=== PATIENT | female | born 1965 | race Caucasian/White ===

== ENCOUNTER 2017-06-23 15:04 | Outpatient (CLI) | payer BC ==
--- NOTE | 2017-06-24 12:29 | Mammography Report ---
DIGITAL SCREENING MAMMOGRAM: 06/23/2017 CLINICAL INDICATION: A 51-year-old with personal history of right breast cancer status post mastecto my and chemotherapy, history of benign left breast biopsy for screening. COMPARISON: 05/2016, 09/2015, 07/2015, 10/2007 TECHNIQUE: Left CC and MLO projections were obtained. FINDINGS: The left breast again demonstrates scattered fibroglandular densities. Subareolar biopsy marker is stable. A few punctate, typically benign calcifications are present. No suspicious masses , clustered microcalcifications, or regions of architectural distortion are identified. IMPRESSION: BENIGN FINDINGS. RECOMMENDATION: Routine annual screening unless otherwise clinically indicated. BIRADS CATEGORY 2 - BENIGN FINDINGS. STANDARD QUALIFYING STATEMENTS 1. This examination was reviewed with the aid of Computer-Aided Detection (CAD). 2. A negative or benign imaging report should not delay biopsy if clinically suspicious findings are present. Consider surgical consultation if warranted. More than 5% of cancers are not identified by i maging. 3. Dense breasts may obscure an underlying neoplasm. JOB #: [id number] EXT JOB #:[id number]
== END 2017-06-23 15:05 | disposition home or self-care (01) ==
LOC: DI 15:04
PROVIDERS: ATTEND Internal Medicine Hematology & Oncology
DX: Z12.31 Encounter for screening mammogram for malignant neoplasm of breast (principal); Z08 Encounter for follow-up examination after completed treatment for malignant neoplasm; Z85.3 Personal history of malignant neoplasm of breast

== ENCOUNTER 2017-11-25 13:00 | Emergency (ER) | payer BC, OTHER ==
--- NOTE | 2017-11-25 15:37 | ED Physician Documentation ---
PD HPI LOWER EXT INJURY - Stated complaint Stated Complaint: R LEG PX/BRUISE/NUMB - Chief complaint Chief Complaint: Ext Problem - History obtained from History obtained from: Patient PD PAST MEDICAL HISTORY - Past Medical History Cardiovascular: None Respiratory: None Neuro: None Endocrine/Autoimmune: None GI: None REGULAR SENIOR CARE PROVIDER: Breast cancer : None HEENT: None Psych: Depression, Anxiety, Panic attacks Musculoskeletal: None Derm: Eczema - Past Surgical History Past Surgical History: Yes /REGULAR SENIOR CARE PROVIDER: Mastectomy - Present Medications Home Medications: Ambulatory Orders Medication Instructions Recorded Confirmed Ascorbic Acid [Vitamin C] 1,000 mg PO QID 09/15/15 05/30/17 Cholecalciferol (Vitamin D3) 2,000 unit PO DAILY 09/15/15 05/30/17 [Vitamin D-3] Cyanocobalamin (Vitamin B-12) 1 tab PO DAILY 09/15/15 05/30/17 [Vitamin B12] Milk Thistle 150 mg PO TID 09/15/15 05/30/17 [place]-3/Dha/Epa/Fish Oil [Fish Oil 1 each PO DAILY 09/15/15 05/30/17 1,400 mg Softgel] Turmeric [Curcumin] 250 gm MC DAILY 09/15/15 05/30/17 Vitamin E 1 cap PO DAILY 01/05/16 05/30/17 Aspirin [Aspir-Low] 81 mg ORAL DAILY 03/16/16 05/30/17 Tamoxifen Citrate 20 mg ORAL DAILY 03/16/16 05/30/17 - Allergies Allergies/Adverse Reactions: Allergies Allergy/AdvReac Type Severity Reaction Status Date / Time codeine Allergy Emesis Verified 11/25/17 13:11 - Social History Does the pt smoke?: Yes Smoking Status: Current every day smoker Results - Vitals Vitals: Vital Signs - 24 hr 11/25/17 13:07 Temperature 36.6 C Heart Rate 73 Respiratory 20 Rate Blood Pressure 150/60 H O2 Saturation 100 Oxygen O2 Source Room air
[2017-11-25] MEDS ORDERED: IBUPROFEN 800 MG TABLET PO STA (18:20)
[2017-11-25 18:32] VITALS: BP 135/77
--- NOTE | 2017-11-25 18:35 | ED Physician Documentation ---
PD HPI LOWER EXT INJURY - Stated complaint Stated Complaint: R LEG PX/BRUISE/NUMB - Chief complaint Chief Complaint: MHE - History obtained from History obtained from: Patient - History of Present Illness PD HPI LOW EXT INJURY LOCATION: Right, Calf Type of injury: Other (No injury.) Timing - duration: Days (3) Worsened by: Moving, Palpating Associated symptoms: Discolored Similar symptoms before: Has not had sx before - Additional information Additional information: The patient is a 51-year-old female who presents with bruising and pain in her right calf. She first noticed it 3 days ago. She denies any traumatic injury. She works, standing on concrete floor for many hours per day. She denies fever, cough, chest pain, or shortness of breath. She denies history of similar symptoms in the past. Past medical history is significant for breast cancer that was diagnosed 4 years ago. She is status post right mastectomy, and has been taking tamoxifen for the past 2 years. She does smoke cigarettes. She has not had any recent long distance travel. Review of Systems Constitutional: denies: Fever Nose: denies: Congestion Throat: denies: Sore throat Cardiac: denies: Chest pain / pressure Respiratory: denies: Dyspnea, Cough GI: denies: Abdominal Pain, Nausea, Vomiting : denies: Dysuria Skin: denies: Rash Musculoskeletal: reports: Extremity pain (Right calf.) Neurologic: denies: Focal weakness, Numbness, Headache PD PAST MEDICAL HISTORY - Past Medical History Past Medical History: No Cardiovascular: None Respiratory: None Neuro: None Endocrine/Autoimmune: None GI: Diverticulitis BODY TRIMMER: Breast cancer : None HEENT: None Psych: Depression, Anxiety, Panic attacks Musculoskeletal: None Derm: Eczema - Past Surgical History Past Surgical History: Yes /BODY TRIMMER: Mastectomy - Present Medications Home Medications: Ambulatory Orders Medication Instructions Recorded Confirmed Ascorbic Acid [Vitamin C] 1,000 mg PO QID 09/15/15 05/30/17 Cholecalciferol (Vitamin D3) 2,000 unit PO DAILY 09/15/15 05/30/17 [Vitamin D-3] Cyanocobalamin (Vitamin B-12) 1 tab PO DAILY 09/15/15 05/30/17 [Vitamin B12] Milk Thistle 150 mg PO TID 09/15/15 05/30/17 [place]-3/Dha/Epa/Fish Oil [Fish Oil 1 each PO DAILY 09/15/15 05/30/17 1,400 mg Softgel] Turmeric [Curcumin] 250 gm MC DAILY 09/15/15 05/30/17 Vitamin E 1 cap PO DAILY 01/05/16 05/30/17 Aspirin [Aspir-Low] 81 mg ORAL DAILY 03/16/16 05/30/17 Tamoxifen Citrate 20 mg ORAL DAILY 03/16/16 05/30/17 - Allergies Allergies/Adverse Reactions: Allergies Allergy/AdvReac Type Severity Reaction Status Date / Time codeine Allergy Emesis Verified 11/25/17 13:11 - Social History Does the pt smoke?: Yes Smoking Status: Current every day smoker Does the pt drink ETOH?: Yes Does the pt have substance abuse?: No - Immunizations Immunizations are current?: Yes - POLST Patient has POLST: No PD ED PE NORMAL - Vitals Vital signs reviewed: Yes (Systolic hypertension initially.) - General General: Alert and oriented X 3, Well developed/nourished - HEENT HEENT: Atraumatic - Neck Neck: No adenopathy, No JVD - Cardiac Cardiac: RRR, No murmur - Respiratory Respiratory: No respiratory distress, Clear bilaterally - Abdomen Abdomen: Soft, Non tender - Back Back: No CVA TTP - Derm Derm: No rash - Extremities Extremities: No edema, Other (There is ecchymosis at the mid calf, with associated tenderness to palpation. There is no swelling of the right leg compared to the left. Distal neurovascular is intact.) - Neuro Neuro: Alert and oriented X 3, No motor deficit, No sensory deficit Results - Vitals Vitals: Vital Signs - 24 hr 11/25/17 11/25/17 11/25/17 13:07 15:55 17:54 Temperature 36.6 C 37.2 C Heart Rate 73 74 93 Respiratory 20 14 16 Rate Blood Pressure 150/60 H 150/88 H 113/70 O2 Saturation 100 100 97 11/25/17 18:31 Temperature Heart Rate 59 L Respiratory 14 Rate Blood Pressure 135/77 H O2 Saturation 98 Oxygen O2 Source Room air - Rads (name of study) Venous Doppler right leg Radiology: Prelim report reviewed, EMP read contemporaneously, See rad report ( No evidence for DVT.) PD MEDICAL DECISION MAKING - ED course Complexity details: reviewed results, re-evaluated patient, considered differential, d/w patient ED course: The patient's presentation is significant for bruising of the right calf, without evidence of DVT by venous Doppler ultrasound. Treatment in the emergency department included administration of ibuprofen 800 mg orally. I discussed with her the results of the ultrasound, symptomatic treatment and outpatient follow-up, as well as potentially worrisome signs or symptoms that should prompt reevaluation in the emergency department. Departure - Departure Disposition: 01 Home, Self Care Clinical Impression: Hematoma of right lower extremity Qualifiers: Encounter type: initial encounter Qualified Code(s): S80.11XA - Contusion of right lower leg, initial encounter Condition: Stable Instructions: ED Hematoma Follow-Up: Aurea Ybarra PA [Primary Care Provider] - Comments: Keep your right leg elevated as much of the time as possible. You can use Tylenol or ibuprofen if needed for discomfort. Avoid aspirin until the bruising has completely resolved. Follow up with your primary physician within 1-2 weeks. Call to schedule appointment. Return to the emergency department if you develop increasing pain or swelling of your leg, or otherwise worsening symptoms. Discharge Date/Time: 11/25/17 18:48
--- NOTE | 2017-11-25 18:37 | Ultrasound Report ---
EXAM: RIGHT LOWER EXTREMITY VENOUS ULTRASOUND EXAM DATE: 11/25/2017 05:52 PM. CLINICAL HISTORY: Right calf pain and ecchymosis. COMPARISON: None. TECHNIQUE: Real-time sonographic vascular imaging was performed by the aircraft refueller through the lower extremity utilizing both color-flow and Doppler spectral analysis. Multiple auto claim representative static maureen ges were saved for review. FINDINGS: Common Femoral Vein (CFV): Normal. CFV-GSV Junction: Normal. Profunda Femoral Vein (PFV): Normal. Femoral Vein (FV) Prox: Normal. Femoral Vein (FV) Mid: Normal. Femoral Vein (FV) Dist: Normal. Popliteal Vein: Normal. Posterior Tibial Veins: Normal. Peroneal Veins: Normal. Other: None. IMPRESSION: No evidence for deep venous thrombosis. [facility] Referring Provider Line: [phone] SITE ID: [id number]
--- NOTE | 2017-11-25 18:37 | Ultrasound Preliminary Report ---
Exam: US DUPLEX EXT VEINS RIGHT IMPRESSION: No evidence for deep venous thrombosis. [facility] SITE ID: [id number]
== END 2017-11-25 18:48 | disposition home or self-care (01) ==
LOC: ED 13:00
DX: S80.11XA Contusion of right lower leg, initial encounter (principal); X58.XXXA Exposure to other specified factors, initial encounter; F17.210 Nicotine dependence, cigarettes, uncomplicated; Z85.3 Personal history of malignant neoplasm of breast; Z90.10 Acquired absence of unspecified breast and nipple
CPT/HCPCS: 93971; 99283; A9270

== ENCOUNTER 2018-03-24 14:57 | Outpatient (CLI) | payer OTHER ==
--- NOTE | 2018-03-24 17:42 | XRAY Report ---
TWO VIEW CHEST: 03/24/2018 CLINICAL INDICATION: Cough, smoker. FINDINGS: Frontal and lateral views of the chest demonstrate a normal cardiac silhouette. The lungs are clear. No effusion or pneumothorax is present. Postoperative changes of right mastectomy are noted. IMPRESSION: NO EVIDENCE OF ACUTE CARDIOPULMONARY DISEASE. TD: 03/24/2018 15:45
== END 2018-03-24 14:58 | disposition home or self-care (01) ==
LOC: DI 14:57
PROVIDERS: ATTEND Physician Assistant
DX: R05 Cough (principal); F17.200 Nicotine dependence, unspecified, uncomplicated
CPT/HCPCS: 71046

== ENCOUNTER 2019-06-26 16:16 | Outpatient (CLI) | payer OTHER ==
--- NOTE | 2019-06-27 09:32 | Mammography Report ---
Reason: R BREAST CA,SCREENING MAMMO Procedure Date: 06/26/2019 Accession Number: [id number] / [id number] Procedure: JOELLE - Screening Mammo Dig LT CPT Code: FULL RESULT: EXAM: Screening Mammo Dig LT DATE: 06/26/2019 4:35 PM CLINICAL HISTORY: Personal history of right breast cancer status post mastectomy. For routine left screening. TECHNIQUE: (Left CC and MLO views were obtained. COMPARISON: 06/23/2017, 06/23/2016, 10/13/2015, 08/19/2015 and 08/11/2015 PARENCHYMAL PATTERN: (A) - The breast demonstrates scattered fibroglandular densities . FINDINGS: There is no significant interval change. There are no suspicious masses, calcifications, or areas of distortion. A retroareolar biopsy marker is stable. IMPRESSION: Negative examination. BI-RADS category 1. RECOMMENDATION: (ANNUAL) - Recommend routine annual screening mammography. BI-RADS CATEGORY: (1) - Negative. STANDARD QUALIFYING STATEMENTS: 1. This examination was not reviewed with the aid of Computer-Aided Detection (CAD). 2. A negative or benign imaging report should not preclude biopsy if clinically suspicious findings are present. 3. Dense breasts may obscure an underlying neoplasm. 4. This examination was reviewed without the aid of 3D breast imaging (tomosynthesis).
== END 2019-06-26 16:17 | disposition home or self-care (01) ==
LOC: DI 16:16
PROVIDERS: ATTEND Internal Medicine Hematology & Oncology
DX: Z12.31 Encounter for screening mammogram for malignant neoplasm of breast (principal); Z85.3 Personal history of malignant neoplasm of breast; Z90.11 Acquired absence of right breast and nipple

== ENCOUNTER 2020-08-01 14:45 | Outpatient (CLI) | payer OTHER ==
--- NOTE | 2020-08-04 16:19 | Mammography Report ---
UNILATERAL LEFT DIGITAL DIAGNOSTIC MAMMOGRAM 3D/2D: 08/01/2020 CLINICAL: Focal left breast pain. Comparison is made to exams dated: 06/26/2019 mammogram - [facility], 06/07/2018 [facility], 08/19/2017 mammogram, 06/23/2017 mammogram - [facility], mammogram - [facility], and 06/23/2016 mammogram - [facility] ter. There are scattered fibroglandular elements in left breast. No significant masses, calcifications, or other findings are seen in the left breast. No abnormaliti es seen in the vicinity of the biopsy marker. IMPRESSION: INCOMPLETE: NEEDS ADDITIONAL IMAGING EVALUATION There is no abnormality seen in the left breast to correspond with the area of clinical concern and p ain indicated by square marker in the sub-areolar depth in the lower aspect, however, ultrasound is r ecommended which is scheduled to immediately follow this examination. This exam was interpreted at Station ID: [id number]. NOTE: For mammograms, a report in lay terms will be sent to the patient. Approximately 15% of breast malignancies will not be visualized mammographically. In the management of a palpable breast mass, a negative mammogram must not discourage biopsy of a clinically suspicious lesion. Electronically Signed By: Kye Rudd M.D. aty/:08/01/2020 16:28:44 ACR BI-RADS Category 0: Incomplete 3340F PARENCHYMAL PATTERN: (A) - The breast(s) demonstrate(s) scattered fibroglandular densities. BI-RADS CATEGORY: (0) - 0 Ultrasound [id number] Immediate follow-up LATERALITY: (L)
--- NOTE | 2020-08-04 16:56 | Ultrasound Report ---
LIMITED ULTRASOUND OF LEFT BREAST: 08/01/2020 CLINICAL: Focal left breast pain which patient now reports has resolved. No palpable masses. Comparison is made to exams dated: 08/01/2020 mammogram, 06/26/2019 mammogram - [facility], 06/07/2018 ultrasound, 06/07/2018 mammogram - [facility], 08/19/2017 mammogram, and 06/23/20 17 mammogram - [facility]. Color flow and real-time ultrasound of the left breast were performed. Jimenez scale images of the helena l-time examination were reviewed. No significant abnormalities were seen sonographically in the left breast. IMPRESSION: NEGATIVE There is no sonographic evidence of malignancy. There is no abnormality seen in the left breast to correspond with the area of clinical concern and n ow resolved pain at 7 o'clock sub-areolar/anterior depth, however, recommend clinical follow up for r ecurring or worsening symptoms or development of any clinically suspicious findings. A 1 year screening mammogram is recommended. Findings and recommendations were conveyed to the patient during today's evaluation. This exam was interpreted at Station ID: [id number]. Electronically Signed By: Kye Rudd M.D. aty/:08/01/2020 17:03:30 Ultrasound BI-RADS: 1 Negative BI-RADS CATEGORY: (1) - 1 RECOMMENDATION: (ANNUAL) - Recommend routine annual screening mammography. [id number] 1 year screening LATERALITY: (B)
== END 2020-08-01 14:46 | disposition home or self-care (01) ==
LOC: DI 14:45
PROVIDERS: ATTEND Physician Assistant
DX: R92.8 Other abnormal and inconclusive findings on diagnostic imaging of breast (principal)
CPT/HCPCS: 76642

== ENCOUNTER 2020-09-22 09:19 | Outpatient (CLI) | payer OTHER ==
--- NOTE | 2020-09-22 11:19 | Ultrasound Report ---
PROCEDURE: Abdomen Limited INDICATIONS: ELEVATED LIVER ENZYMES TECHNIQUE: Real-time focused scanning was performed of the abdomen, with image documentation. COMPARISON: Abdomen/pelvis CT 07/20/2016 reviewed FINDINGS: The liver is enlarged, echogenic, and the appearance is most consistent with generalized f atty infiltration. The liver craniocaudad length is up to 19.4 cm. No hepatic mass lesion can be seen . The gallbladder appears normal, the perihepatic space is free of ascites. The common bile duct lukas ures 7.4 mm, the right kidney measures 11.5 cm and is free of hydronephrosis or nephrolithiasis IMPRESSION: Limited study targeted to the right upper quadrant at clinician request. Hepatomegaly with diffuse in creased echotexture of the liver parenchyma consistent with hepatic steatosis, but no focal liver les ion is seen with suggest presence of infection or neoplasm. The gallbladder appears free of calculus or adjacent biliary distention. No right kidney abnormality is seen. Reviewed by: Edgard Dillon MD on 09/22/2020 11:17 AM PST Approved by: Edgard Dillon MD on 09/22/2020 11:17 AM PST Station ID: [id number]
== END 2020-09-22 09:20 | disposition home or self-care (01) ==
LOC: DI 09:19
PROVIDERS: ATTEND Nurse Practitioner Family
DX: R16.0 Hepatomegaly, not elsewhere classified (principal); R93.2 Abnormal findings on diagnostic imaging of liver and biliary tract

== ENCOUNTER 2022-03-15 10:39 | Day surgery (SDC) | payer OTHER ==
[2022-03-15] MEDS ORDERED: LACTATED RINGERS 1,000 ML IV ONE ×2 (10:59→12:46)
--- NOTE | 2022-03-15 11:41 | ANESTHESIA ---
Pre-Anesthesia VS, & Labs - Diagnosis hx of polyps - Procedure colonoscopy Vital Signs: Temp Pulse Resp BP Pulse Ox 36.5 C 74 20 144/94 H 96 03/15/22 10:59 03/15/22 10:59 03/15/22 10:59 03/15/22 10:59 03/15/22 10:59 Height: 5 ft 7 in Weight (kg): 103.2 kg Body Mass Index: 35.6 BMI Classification: Obese - NPO >8 hours - Is Patient ?: No Home Medications and Allergies Home Medications: Ambulatory Orders Aspirin [[place] Aspirin EC] 81 mg PO DAILY 03/15/22 Gabapentin [Neurontin] 300 mg PO HS 03/15/22 Spironolactone [Aldactone] 25 mg PO DAILY 03/15/22 Tamoxifen Citrate 20 mg ORAL DAILY 03/16/16 Albuterol Sulfate [Proair Hfa Inhaler] 1 - 2 puffs INH Q4H PRN 03/04/22 Losartan Potassium 25 mg PO DAILY 03/04/22 Aspirin [[place] Aspirin EC] 81 mg PO DAILY 03/15/22 Gabapentin [Neurontin] 300 mg PO HS 03/15/22 Spironolactone [Aldactone] 25 mg PO DAILY 03/15/22 Allergies/Adverse Reactions: Allergies Allergy/AdvReac Type Severity Reaction Status Date / Time codeine Allergy Emesis Verified 03/03/21 12:20 Anes History & Medical History - Anesthetic History Anesthesia Complications: reports: No previous complications Family history of Anesthesia Complications: Denies Family history of Malignant Hyperthermia: Denies - Medical History Cardiovascular: reports: Hypertension Pulmonary: reports: COPD Gastrointestinal: reports: Colon polyps, Diverticulitis Urinary: reports: None Neuro: reports: Peripheral neuropathy Musculoskeletal: reports: Osteoarthritis, Chronic back pain Endocrine/Autoimmune: reports: None Blood Disorders: reports: None Skin: reports: Eczema, Rosacea Smoking Status: Current every day smoker Psychosocial: reports: Alcohol (daily ETOH) History of Cancer?: Yes (breast CA) - Surgical History General: reports: Colonoscopy Gynecologic: reports: Mastectomy Orthopedic: reports: Other Exam General: Alert, Oriented x3, Cooperative Dental: WNL Mouth Openin Fingerbreadth Neck Mobility: Normal Mallampati classification: II Thyromental Distance: 4-6 cm Respiratory: Lungs clear Cardiovascular: Regular rate Plan Anesthesia Type: Total IV Consent for Procedure(s) Verified and Reviewed: Yes Code Status: Attempt Resuscitation ASA classification: 3-Severe systemic disease Is this case an emergency?: No
[2022-03-15 13:07] VITALS: BP 115/62
--- NOTE | 2022-03-15 14:48 | ANESTHESIA POST OP EVALUATION ---
Anesthesia Post Eval - Post Anesthesia Eval Vitals: Last Vital Signs Temp 36.1 C L 03/15/22 12:46 Pulse 66 03/15/22 13:00 Resp 16 03/15/22 13:00 BP 115/62 03/15/22 13:00 Pulse Ox 98 03/15/22 13:00 CV Function Including HR & BP: Stable Pain Control: Satisfactory Nausea & Vomiting: Negative Mental Status: Baseline Respiratory Status: Airway Patent Hydration Status: Satisfactory Anesthesia Complications: None
== END 2022-03-15 10:40 | disposition home or self-care (01) ==
LOC: SDS 10:39
PROVIDERS: ATTEND Surgery
PROC: 0DBL8ZZ Excision of Transverse Colon, Via Natural or Artificial Opening Endoscopic (ICD-10-PCS; 2022-03-15)
PROC: 0DBM8ZZ Excision of Descending Colon, Via Natural or Artificial Opening Endoscopic (ICD-10-PCS; principal; 2022-03-15 12:00)
DX: Z12.11 Encounter for screening for malignant neoplasm of colon (principal); K63.5 Polyp of colon; K64.8 Other hemorrhoids; K64.4 Residual hemorrhoidal skin tags; K57.30 Diverticulosis of large intestine without perforation or abscess without bleeding; J44.9 Chronic obstructive pulmonary disease, unspecified; Z79.899 Other long term (current) drug therapy; E66.9 Obesity, unspecified; Z68.35 Body mass index [BMI] 35.0-35.9, adult; F17.210 Nicotine dependence, cigarettes, uncomplicated
CPT/HCPCS: 45380; J7120

== ENCOUNTER 2022-04-11 14:23 | Outpatient (CLI) | payer OTHER ==
--- NOTE | 2022-04-12 14:17 | Mammography Report ---
UNILATERAL LEFT DIGITAL SCREENING MAMMOGRAM 3D/2D WITH EXAGGERATED CC: 04/11/2022 CLINICAL: Routine screening. Routine screening. Personal history of right breast cancer. Family histo ry of breast cancer. Comparison is made to exams dated: 08/01/2020 mammogram and 06/26/2019 mammogram - [facility]. There are scattered fibroglandular elements in left breast. There is a biopsy clip in the left breast. No significant masses, calcifications, or other findings are seen in the breast. There has been no significant interval change. IMPRESSION: NEGATIVE There is no mammographic evidence of malignancy. A 1 year screening mammogram is recommended. This exam was interpreted at Station ID: [id number]. NOTE: For mammograms, a report in lay terms will be sent to the patient. Approximately 15% of breast malignancies will not be visualized mammographically. In the management of a palpable breast mass, a negative mammogram must not discourage biopsy of a clinically suspicious lesion. Electronically Signed By: Henrik davis/love:04/12/2022 08:26:36 ACR BI-RADS Category 1: Negative 3341F PARENCHYMAL PATTERN: (A) - The breast(s) demonstrate(s) scattered fibroglandular densities. BI-RADS CATEGORY: (1) - 1 RECOMMENDATION: (ANNUAL) - Recommend routine annual screening mammography. [id number] 1 year screening LATERALITY: (B)
== END 2022-04-11 14:24 | disposition home or self-care (01) ==
LOC: DI.S 14:23
PROVIDERS: ATTEND Nurse Practitioner Family
DX: Z12.31 Encounter for screening mammogram for malignant neoplasm of breast (principal); Z85.3 Personal history of malignant neoplasm of breast; Z80.3 Family history of malignant neoplasm of breast

== ENCOUNTER 2023-06-15 14:23 | Outpatient (CLI) | payer OTHER ==
[2023-06-15 14:36] LABS: BASOPHILS % (AUTO) 0.4 %; EOSINOPHILS # (AUTO) 0.2 10^3/uL (0.0-0.7); EOSINOPHILS % (AUTO) 3.1 %; HCT - HEMATOCRIT 45.4 % (37.0-47.0); HGB - HEMOGLOBIN 15.3 g/dL (12.0-16.0); LYMPHOCYTES # (AUTO) 1.6 10^3/uL (1.5-3.5); LYMPHOCYTES % (AUTO) 20.9 %; MEAN CORPUSCULAR HGB CONC 33.7 g/dL (32.0-36.0); MEAN CORPUSCULAR VOLUME 100.9 fL (81.0-99.0); MEAN PLATELET VOLUME 8.8 fL (7.9-10.8); MONOCYTES # (AUTO) 0.6 10^3/uL (0.0-1.0); NEUTROPHILS # (AUTO) 5.2 10^3/uL (1.5-6.6); NEUTROPHILS % (AUTO) 67.3 %; PLT - PLATELET COUNT 202 10^3/uL (130-450); RED CELL DISTRIBUTION WIDTH 12.1 % (12.0-15.0); WHITE BLOOD COUNT 7.7 x10^3/uL (4.8-10.8)
[2023-06-15 15:12] LABS: ALBUMIN 4.3 g/dL (3.2-5.5); ALBUMIN/GLOBULIN RATIO 1.3 (1.0-2.2); ALKALINE PHOSPHATASE 65 IU/L (42-121); ALT ALANINE AMINOTRANSFERASE 32 IU/L (10-60); AST ASPARTATE AMINOTRANSFERASE 33 IU/L (10-42); BILIRUBIN,TOTAL 0.8 mg/dL (0.2-1.0); BUN - BLOOD UREA NITROGEN 14 mg/dL (6-20); CALCIUM 9.7 mg/dL (8.5-10.3); CARBON DIOXIDE - CO2 31 mmol/L (21-32); CHLORIDE 101 mmol/L (101-111); CHOL/HDL RATIO 3.9 (<4.4); CHOLESTEROL 294 mg/dL; CREATININE 0.7 mg/dL (0.6-1.3); GFR - MDRD 87 (>89); GLUCOSE 160 mg/dL (74-104); HDL CHOLESTEROL 76 mg/dL; LDL CHOLESTEROL,CALCULATED 197 mg/dL; LDL/HDL RATIO 2.6 (<4.4); POTASSIUM 4.3 mmol/L (3.5-4.5); SODIUM 137 mmol/L (135-145); TOTAL PROTEIN 7.5 g/dL (6.4-8.9); TRIGLYCERIDES 104 mg/dL (48-352); VLDL CHOLESTEROL 21 mg/dL
[2023-06-16 05:14] LABS: HCV AB Non Reactive (Non Reactive)
== END 2023-06-15 14:24 | disposition home or self-care (01) ==
LOC: LAB 14:23
PROVIDERS: ATTEND Physician Assistant
DX: D75.89 Other specified diseases of blood and blood-forming organs (principal); Z11.59 Encounter for screening for other viral diseases; E78.5 Hyperlipidemia, unspecified; R74.8 Abnormal levels of other serum enzymes
CPT/HCPCS: 36415; 80053; 80061; 82607; 82746; 83721; 85025; 86803

== ENCOUNTER 2023-07-04 14:31 | Outpatient (CLI) | payer OTHER ==
--- NOTE | 2023-07-05 09:34 | Mammography Report ---
UNILATERAL LEFT DIGITAL SCREENING MAMMOGRAM 3D/2D: 07/04/2023 CLINICAL: Routine screening. Personal history of right breast cancer. Comparison is made to exams dated: 04/11/2022 mammogram, 08/01/2020 mammogram, 06/26/2019 mammogram - [facility], 06/07/2018 mammogram - [facility], 08/19/2017 mammogram - [facility], and 06/23/2017 mammogram - [facility]. There are scattered areas of fibroglandular density in the left breast (category b / 25%-50% glandula r tissue). There is a biopsy clip in the left breast. No significant masses, calcifications, or other findings are seen in the breast. There has been no significant interval change. IMPRESSION: NEGATIVE There is no mammographic evidence of malignancy. A 1 year screening mammogram is recommended. This exam was interpreted at Station ID: [id number]. NOTE: For mammograms, a report in lay terms will be sent to the patient. Approximately 15% of breast malignancies will not be visualized mammographically. In the management of a palpable breast mass, a negative mammogram must not discourage biopsy of a clinically suspicious lesion. Electronically Signed By: Kye miller/love:07/04/2023 16:47:03 letter sent: No_Letter ACR BI-RADS Category 1: Negative 3341F PARENCHYMAL PATTERN: (A) - The breast(s) demonstrate(s) scattered fibroglandular densities. BI-RADS CATEGORY: (1) - 1 Mammogram [id number] 1 year screening LATERALITY: (B)
== END 2023-07-04 14:32 | disposition home or self-care (01) ==
LOC: DI 14:31
PROVIDERS: ATTEND Physician Assistant
DX: Z12.31 Encounter for screening mammogram for malignant neoplasm of breast (principal); Z80.3 Family history of malignant neoplasm of breast

== ENCOUNTER 2023-12-13 14:56 | Outpatient (CLI) | payer OTHER ==
[2023-12-13] MEDS: ALBUTEROL 1 PUFF INH STA (16:25)
== END 2023-12-13 14:57 | disposition home or self-care (01) ==
LOC: RT 14:56
PROVIDERS: ATTEND Registered Nurse
DX: J44.9 Chronic obstructive pulmonary disease, unspecified (principal); F17.200 Nicotine dependence, unspecified, uncomplicated
CPT/HCPCS: 94060; 94727; 94729

== ENCOUNTER 2024-02-07 13:19 | Outpatient (CLI) | payer OTHER ==
--- NOTE | 2024-02-07 17:17 | CT Report ---
PROCEDURE: Lung Cancer Screen INDICATIONS: SMOKER TECHNIQUE: A CT scan of the chest was performed. Intravenous contrast media was not administered. Images were re corded and evaluated at appropriate window settings. Reformats: axial MIP of the chest, coronal and s agittal. For radiation dose reduction, the following was used: automated exposure control, adjustment of mA and/or kV according to patient size. COMPARISON: None. FINDINGS: Image quality: Excellent. Prior cancer history: None given Lungs and pleura: No pleural effusions. No pneumothorax. 3 mm fissural nodule, right major fissure, image 49/4. 2 mm left upper lobe nodule, image 32/4. Mediastinum: Heart size is normal. No pericardial effusion. Mild aneurysmal dilatation of ascending a po, measuring 1 cm. Reference image 50/2. No mediastinal adenopathy by size criteria. Chest wall and lower neck: Thyroid is unremarkable. No axillary or supraclavicular adenopathy by size . Bones: No aggressive osseous abnormality. Upper Abdomen: Unremarkable. IMPRESSION: There are numerous 2 small pulmonary nodules, very unlikely to become clinically signific ant malignancy. There is mild aneurysmal dilatation of ascending aorta. Lung RAD: 2 - Benign. Recommendation: Continue annual screening in 12 Months with LDCT Non-Lung Significant Findings: Aortic Aneurysm. Reviewed by: Caleb Méndez MD on 02/07/2024 5:15 PM PDT Approved by: Caleb Méndez MD on 02/07/2024 5:15 PM PDT Station ID: [id number]
== END 2024-02-07 13:20 | disposition home or self-care (01) ==
LOC: DI 13:19
PROVIDERS: ATTEND Registered Nurse
DX: R91.8 Other nonspecific abnormal finding of lung field (principal); I71.21 Aneurysm of the ascending aorta, without rupture; F17.200 Nicotine dependence, unspecified, uncomplicated

== ENCOUNTER 2024-02-07 13:20 | Outpatient (CLI) | payer OTHER ==
--- NOTE | 2024-02-07 17:28 | XRAY Report ---
PROCEDURE: Hand 3+V BL INDICATIONS: BILATERAL HAND PAIN TECHNIQUE: 3 views of the hand(s) acquired. COMPARISON: None. FINDINGS: Bones: No fractures or dislocations. Moderate left and mild right first CMC joint space narrowing an d juxta-articular osteophytosis. No osseous erosions. Mild to moderate left first IP and bilateral se cond DIP joint space narrowing and juxta-articular osteophytosis bilaterally. No suspicious bony lesi ons. Soft tissues: No suspicious soft tissue calcifications or masses. IMPRESSION: 1.No acute bony abnormality. 2.Moderate left and mild right first CMC joint osteoarthritis. 3.Mild to moderate left 1st IP and bilateral DIP joint osteoarthritis. Reviewed by: Ursula Erazo MD on 02/07/2024 5:26 PM PDT Approved by: Ursula Erazo MD on 02/07/2024 5:26 PM PDT Station ID: [id number]
== END 2024-02-07 13:21 | disposition home or self-care (01) ==
LOC: DI 13:20
PROVIDERS: ATTEND Registered Nurse
DX: M18.0 Bilateral primary osteoarthritis of first carpometacarpal joints (principal); M19.041 Primary osteoarthritis, right hand; M19.042 Primary osteoarthritis, left hand

== ENCOUNTER 2024-07-05 14:10 | Outpatient (CLI) | payer OTHER ==
--- NOTE | 2024-07-06 10:45 | Mammography Report ---
UNILATERAL LEFT DIGITAL SCREENING MAMMOGRAM 3D/2D: 07/05/2024 CLINICAL: Routine screening. Comparison is made to exams dated: 07/04/2023 mammogram, 04/11/2022 mammogram, 08/01/2020 ultrasound, 1 mammogram, 06/26/2019 mammogram - [facility], and 06/07/2018 ultrasound - [facility]. There are scattered areas of fibroglandular density (category b / 25%-50% glandular tissue). There is a biopsy clip in the left breast. No significant masses, calcifications, or other findings are seen in the breast. There has been no significant interval change. IMPRESSION: NEGATIVE There is no mammographic evidence of malignancy. A 1 year screening mammogram is recommended. This exam was interpreted at Station ID: [id number]. NOTE: For mammograms, a report in lay terms will be sent to the patient. Approximately 15% of breast malignancies will not be visualized mammographically. In the management of a palpable breast mass, a negative mammogram must not discourage biopsy of a clinically suspicious lesion. Electronically Signed By: Kye Rudd M.D. [email or web address]:07/05/2024 17:44:25 ACR BI-RADS Category 1: Negative 3341F PARENCHYMAL PATTERN: (A) - The breast(s) demonstrate(s) scattered fibroglandular densities. BI-RADS CATEGORY: (1) - 1 RECOMMENDATION: (ANNUAL) - Recommend routine annual screening mammography. [id number] 1 year screening LATERALITY: (B)
== END 2024-07-05 14:11 | disposition home or self-care (01) ==
LOC: DI 14:10
PROVIDERS: ATTEND Internal Medicine Hematology & Oncology
DX: Z12.31 Encounter for screening mammogram for malignant neoplasm of breast (principal)